=== PATIENT | female | born 1940 ===

== ENCOUNTER 2016-03-28 00:29 | Observation (INO) | payer MEDICARE, MEDICAID, OTHER ==
[~2016-03-28] VITALS: Ht 157.5 cm; Wt 61.3 kg
[2016-03-28] VITALS (10 sets, daily range): BP systolic 125–179; BP diastolic 49–74; PULSE 68–115; RESP 16–22; O2SAT 95–99
[~2016-03-28 00:29] MED LIST: CEFD300C3 PO; CLOP75TA3 PO; FURO-129 PO; LIP40 PO; LISI-567 PO; METF500T4 PO; METO50TA3 PO; METR500T PO; PANT20TA2 PO; POTA10TA PO
--- NOTE | 2016-03-28 00:42 | ED.REPORT ---
HPI-General Illness Date of Service Mar 28, 2016 ED Provider: Kirill Rodríguez MD Patient is a 75 year old female with history of recurrent pneumonia with prior hospital admission for sepsis, diabetes mellitus, coronary artery disease, hyperlipidemia and hypertension who presents to the ED after she was found with decreased level consciousness at 11:40pm by her granddaughter. Her granddaughter states that she was called by her grandfather t, who simply stated that her grandmother was not feeling well and that she needed to go to the hospital. When she arrived she found her grandmother unresponsive, eventually opening her eye to look at her. However, her grandmother was not able to speak and she rushed her to the hospital POV. Code danielle was called on the patient's arrival to the ED, however she was confirmed to have a pulse after she was brought back to a room. It was presumed that the patient had a syncopal episode. Her granddaughter reports that her grandmother felt unwell today and that she had fever. Her daughter reports that the patient was seen at a family event today and that she went home at 7pm because she felt unwell. The patient had reported having chest pain this morning "like she was coming down with a cold. The patient appeared short of breath and diaphoretic when she left the family gathering. She also reportedly complained of nausea to her . Patient is unable to provide any history, with the granddaughter and her daughter serving as the primary historians. Nursing Notes Stated Complaint: UNRESPONSIVE Chief Complaint: General Complaint Nursing Notes Reviewed: Yes Allergies: Coded Allergies: lactose (Verified Allergy, Mild, Nausea,Vomiting,Diarrhea, 03/28/16) Uncoded Allergies: Lactose (Allergy, Mild, Nausea,Vomiting,Diarrhea, 11/07/04) Scheduled Atorvastatin (Lipitor) 40 Mg Tablet 40 MG PO DAILY Cefdinir (Cefdinir) 300 Mg Capsule 300 MG PO BID Clopidogrel Bisulfate (Plavix) 75 Mg Tablet 75 MG PO DAILY Furosemide (Lasix) 20 Mg Tablet 20 MG PO DAILY Lisinopril (Lisinopril) 20 Mg Tablet 20 MG PO DAILY Metformin (Metformin) 500 Mg Tablet 500 MG PO BID Metoprolol Tartrate (Metoprolol Tartrate) 50 Mg Tablet 50 MG PO BID Metronidazole (Flagyl) 500 Mg Tablet 500 MG PO Q8H Pantoprazole DR (Pantoprazole DR) 20 Mg Tablet.dr 20 MG PO DAILY Potassium Chloride ER (K-Tab) 10 Meq Tablet 10 MEQ PO DAILY General Time Seen by MD: 00:32 Chief Complaint Other (decreased LOC) Hx Obtained From: Daughter, Other family... (Granddaughter) Unable to Obtain Hx: Patient condition Arrived By: Wheelchair Sudden in Onset?: No Onset Occurred: Onset unknown (earlier this evening) Symptom Duration: Since onset Recent Healthcare: No recent doctor visit, No recent hospitalization Similar Sx Previous: No Past Medical History Past Medical History current pneumonia, with prior hospital admission and sepsis Reports: Coronary artery disease, Diabetes mellitus, Hyperlipidemia, Hypertension Past Surgical History KRISH-BSO Reports: Cholecystectomy Smoking History Former Smoker Social History Alcohol Use: Denies alcohol use Drug Use: Denies drug use Ambulatory Status Independent Review of Systems Unable to Obtain ROS Patient condition Physical Exam Vital Signs Vital Signs Date Time Temp Pulse Resp B/P Pulse Ox O2 Delivery O2 Flow Rate FiO2 03/28/16 03:56 78 22 125/50 97 Room Air 03/28/16 01:08 102 16 157/65 99 Room Air 03/28/16 00:35 37.0 115 22 179/74 98 Room Air Initial VS: Reviewed Alertness: Positive: Responds to verb stimuli (but goes back to sleep) snoring respirations noted blood pressue was not initially measured radially, but carotid pulse is present at all times Head / Eyes: Atraumatic, Normocephalic, PERRL ENT: Airway patent, Mucous membranes moist Neck: Supple, No JVD Respiratory / Chest: Breath sounds NL, Breath sounds = bilat, No respiratory distress, No rales, No rhonchi, No wheezing Cardiovascular: Heart rate NL, Regular rhythm, Heart sounds NL Abdomen: Soft, Non-tender, No distention Upper Extremities Upper Extremity / MS: No deformity, Neurologic intact, Vascular intact Lower Extremity / Pelvis / MS: No deformity, Neurologic intact, Vascular intact Skin: Warm Color / Condition: Positive: Diaphoresis present Neurologic: No motor deficits (moving all four extremities), CN II - XII intact (face is symmetric) Mental Status: Positive: Responds to verbal stim (but goes back to sleep) Interpretation & Diagnostics Interpretation & Diagnostics: NEGATIVE FOR INFLUENZA TYPE A AND B Lab Results Interpretation Result Diagram: 03/28/16 0030 03/28/16 0030 Test 03/28/16 00:30 03/28/16 02:45 White Blood Count 15.5th/mm3 (3.8-10.1) Red Blood Count 4.33mil/mm3 (3.90-5.20) Hemoglobin 12.6g/dL (12.0-15.6) Hematocrit 37.2% (35.0-46.0) Mean Corpuscular Volume 85.9fL (81-100) Mean Corpuscular Hemoglobin 29.1pg (27.0-35.0) Mean Corpuscular Hemoglobin Concent 33.9% (32.0-37.0) Red Cell Distribution Width 13.8% (12.3-15.4) Platelet Count 236bil/L (150-400) Neutrophils (%) (Auto) 84.7% (40-74) Lymphocytes (%) (Auto) 9.6% (14-46) Monocytes (%) (Auto) 5.0% (4-12) Eosinophils (%) (Auto) 0.3% (0-5) Basophils (%) (Auto) 0.1% (0-3) D-Dimer < 0.5mg/L (<0.50) Sodium Level 137mEq/L (134-144) Potassium Level 4.6mEq/L (3.5-5.2) Chloride Level 101mEq/L (97-108) Carbon Dioxide Level 22mmol/L (18-29) Blood Urea Nitrogen 12mg/dL (8-27) Creatinine 0.49mg/dL (0.57-1.00) Estimat Glomerular Filtration Rate 177mL/min (>59) Glucose Level 177mg/dL (60-99) Calcium Level 8.8mg/dL (8.5-10.1) Magnesium Level 1.8mg/dL (1.6-2.6) Total Bilirubin 0.6mg/dL (0.0-1.2) Aspartate Amino Transf (AST/SGOT) 27U/L (0-50) Alanine Aminotransferase (ALT/SGPT) 21U/L (0-32) Alkaline Phosphatase 106U/L (25-165) Troponin T 0.010ug/L (0.0-0.011) Pro-B-Type Natriuretic Peptide 818.8pg/mL (0-738) Total Protein 7.7g/dL (6.4-8.4) Albumin 4.0g/dL (3.4-5.0) Triglycerides Level 71mg/dL (0-149) Cholesterol Level 105mg/dL (100-199) LDL Cholesterol, Calculated 42.800mg/dL (0-99) VLDL Cholesterol 14.200mg/dL HDL Cholesterol 48mg/dL (>39) Cholesterol/HDL Ratio 2.19 (0.0-4.4) Hold Obrien Top Tube Received (Received) Urine Color Yellow (YELLOW) Urine Appearance Hazy (CLEAR,HAZY) Urine pH 7.0 (5.0-8.0) Urine Specific [place] 1.010 (1.003-1.035) Urine Protein Negativemg/dL (NEG,TRACE) Urine Glucose (UA) Negativemg/dL (NEGATIVE) Urine Ketones Negativemg/dL (NEGATIVE) Urine Occult Blood Negative (NEGATIVE) Urine Nitrite Negative (NEGATIVE) Urine Bilirubin Negative (NEGATIVE) Urine Urobilinogen Normalmg/dL (NORMAL) Urine Leukocyte Esterase Trace (NEGATIVE) Urine RBC 0-2/hpf (0-2) Urine WBC 0-5/hpf (0-5) Urine Epithelial Cells Occasional/hpf (NONE-MOD) Urine Crystals None seen (NONE SEEN) Urine Bacteria Few/hpf (NONE-FEW) Urine Hyaline Casts None/lpf (NONE) Urine Granular Casts None seen (NONE SEEN) Urine Waxy Casts None seen (NONE SEEN) Urine Red Blood Cell Casts None seen (NONE SEEN) Urine White Blood Cell Casts None seen (NONE SEEN) Urine Mucus None seen (None Seen) Urine Trichomonas None seen (NONE SEEN) Urine Yeast None (NONE SEEN) Urine Culture Reflexed Indicated ECG Interpretation ECG Interpretation: Normal sinus rhythm Lateral ST and T wave depression Time: 00:45 Interpreted by: ED physician Normal ECG Interpretation: No acute ischemic changes ECG Interpretation: Sinus Rhythm, Rate 81 Probable left ventricular hypertrophy resolved lateral ST and T wave depression Time: 04:44 Interpreted by: ED physician X-Ray Chest Interpretation Chest Xray Interpretation: Impression: No acute cardiopulmonary process. View: Portable Interpretation / Wet Read by: Wet read ED physician CT Head Interpretation CONCLUSION: Mild atrophy and chronic small vessel ischemic disease with no acute intracranial abnoramlity. Prior left basal ganglia infarct noted. Radiologist: Jf Juan DO 03/28/2016 - 1:18:21 AM PST Study: Head CT no contrast Interpretation / Wet Read by: Interpret - Radiologist Re-Eval/Medical Decision Med Decision/Clinical Course 75-year-old with prior pneumonia, presents with a three day prodrome of nonspecific generalized malaise, and was found hypotensive and apparently syncopal in the front seat of her car, after being transported here by her family. She has no focus of infection on evaluation, no evidence of AR, although there is ischemia. In the lateral leads that is resolved on repeat. She has responded to IV hydration with an improved blood pressure and stable vitals at this point. She needs completion of rule out protocol and further evaluation. Blood cultures are pending. X-ray shows no apparent pneumonia, and urine is negative. D-dimer is negative. Transported in stable condition. Source of Hx: Old records Time of Eval: 03:13 Re-Evaluation/Progress Note: Rechecked the patient and her family. Family has continued to be stable during ED visit. Informed her family of the results of her labs, EKG, and chest x-ray. Patient will be admitted to the hospital for further care. All questions were addressed. Consultation : Referral / Consult Name: Jarvis Mullen MD Consulted With: Hospitalist Call Returned at: 03:10 Strap Sewer: Will see patient, Agrees with eval, Agrees with plan, Accepts admit Note: Spoke with Dr. Mullen, hospitalist, who agrees to accept admit. Counseled Regarding: Diagnosis, Lab results, Need for admission Discharge & Departure Primary Impression: Syncope Syncope type: unspecified Qualified Code: R55 - Syncope and collapse Additional Impression: Hypotension Hypotension type: unspecified hypotension type Qualified Code: I95.9 - Hypotension, unspecified Disposition: ADMITTED TO HOSPITAL Discharge Condition All VS Reviewed: Yes Condition: Stable Referrals: Jf Hernandez MD (PCP) Crit Care Except Billable Proc Time Spent: 30-74 minutes Services Performed: Patient management by me, Time spent at bedside, Reviewing test results, Reviewing imaging, Discussing patient care, Documentation in record, Time with fam/surrogate Critical Care Notes: Responded to the parking lot for a "code blue", and found a syncopal lady with hypotension that was responsive to supine posture. Transported in the emergency department and resuscitated as above. Scribe Attestation Portions of this note were transcribed by Marcelle Jim. I, Dr. Rodríguez personally performed the history, physical exam and medical decision-making; I reviewed and confirmed the accuracy of the information in the transcribed note. Signed by: Bertram Lorenzo, 03/28/2016 0454 copies to: Jf Hernandez MD, Christopher W MD Mar 28, 2016 00:42 Marcelle Jim Mar 28, 2016 00:58
[2016-03-28 00:43] LABS: BASOPHILS % (AUTO) 0.1 % (0-3); EOSINOPHILS % (AUTO) 0.3 % (0-5); Mean Corpuscular Hemoglobin 29.1 pg (27.0-35.0); Mean Corpuscular Volume 85.9 fL (81-100); NEUTROPHILS % (AUTO) 84.7 % (40-74); Platelet Count 236 bil/L (150-400)
[2016-03-28 01:27] LABS: Magnesium 1.8 mg/dL (1.6-2.6)
[2016-03-28 01:46] LABS: TROPONIN T 0.01 ug/L (0.0-0.011)
[2016-03-28 02:50] LABS: APPEARANCE,URINE HAZY (CLEAR,HAZY); COLOR,URINE YELLOW (YELLOW); OCCULT BLOOD,URINE NEGATIVE (NEGATIVE); UROBILINOGEN,URINE NORMAL (NORMAL)
[2016-03-28] MEDS ORDERED: Alum-Mag Hydrox-Simeth 30 mL Suspension PO PRN (03:45)
[2016-03-28] MEDS ORDERED: Polyethylene Glycol (PEG) 17 Gm Powder PO PRN (03:45)
[2016-03-28] MEDS ORDERED: Ondansetron 2 mg/mL 2 mL Inj IVPUSH PRN (03:45)
[2016-03-28] MEDS: 0.9% Sodium Chloride 1,000 ML IV SCH ×3 (03:57→19:48)
[2016-03-28] MEDS ORDERED: 0.9% Sodium Chloride 1,000 ML IV ONE (04:00)
[2016-03-28] MEDS ORDERED: Glucose 40% Oral Gel 15 Gm Tube PO PRN (04:35)
--- NOTE | 2016-03-28 04:45 | PCM.HPMED ---
Subjective Date of Service Mar 28, 2016 Primary Provider: Admitting Physician: Primary Care Physician: Jf Hernandez MD Attending Physician: Chief Complaint: Unresponsive History of Present Illness: Patient is a 75 year old female with a history of CAD, DM2, HTN, and HLP. She presented to [facility] on 03/28/16 via POV with her granddaughter. Patient is quite somnolent and all history taken from granddaughter. The young women reports that she was told the patient had felt poorly much of the day with some chest pain around 0800. Later in the day the patient reported feeling as though she was coming down with a cold with fever. No known cough but perhaps some shortness of breath, nausea and vomiting. The patient went to a family gathering around 1900 but left early because she continued not to feel well; apparently she appeared diaphoretic and short of breath at that time. Later in the night the patient's called the granddaughter over and when she arrived around 11:40PM she found her grandmother unresponsive and brought her to [facility]. Staff were brought out to the vehicle and patient was found to have a pulse but otherwise appeared unresponsive. Patient was rushed back to a room for evaluation. Of note, patient recently visited a large number of family members in [place]. The granddaughter was not at this gathering but does not believe any one to have been ill. No known sick contacts with the exception of the patient's sister who is recently and possibly had the flu. In the ED the patient is afebrile with a heart rate of 115, respiratory rate of 22, blood pressure 179/74, and O2 saturation of 98% on room air. Labs were remarkable for WBC 15.5 and blood glucose 177. Review of Systems: Patient with altered LOC. Complete ROS could not be obtained. Allergies Coded Allergies: lactose (Verified Allergy, Mild, Nausea,Vomiting,Diarrhea, 03/28/16) Uncoded Allergies: Lactose (Allergy, Mild, Nausea,Vomiting,Diarrhea, 11/07/04) Home Medications From hospital d/c 12/01/15 (no known changes reported since that time): Atorvastatin (Lipitor) 40 Mg Tablet 40 MG PO DAILY Clopidogrel Bisulfate (Plavix) 75 Mg Tablet 75 MG PO DAILY Furosemide (Lasix) 20 Mg Tablet 20 MG PO DAILY Lisinopril (Lisinopril) 20 Mg Tablet 20 MG PO DAILY Metformin (Metformin) 500 Mg Tablet 500 MG PO BID Metoprolol Tartrate (Metoprolol Tartrate) 50 Mg Tablet 50 MG PO BID Pantoprazole DR (Pantoprazole DR) 20 Mg Tablet.dr 20 MG PO DAILY Potassium Chloride ER (K-Tab) 10 Meq Tablet 10 MEQ PO DAILY PMH Coronary artery disease s/p stenting Diabetes mellitus type 2 Hyperlipidemia Hypertension Surgical History Cholecystectomy KRISH-BSO Family History She has one daughter with cancer No known family history of lung disease or heart disease per granddaughter Social History Hx Alcohol Use: Yes (Patient is a former drinker. She admits that she used to drink [place] ) Hx Substance Use: No Hx Tobacco Use: Yes (quit approximately 30 years ago, patient used to smoke 3 packs per day ) Smoking Status: Former Smoker Living Arrangement: with Family Exam Vital Signs Vital Sign - Last Date Time Temp Pulse Resp B/P Pulse Ox O2 Delivery O2 Flow Rate FiO2 03/28/16 01:08 102 16 157/65 99 Room Air 03/28/16 00:35 37.0 Exam Somnolent, does not arouse to verbal or tactile stimulus, no acute distress, follows no directions Head atraumatic, normocephalic Mucus membranes moist, no oral thrush observed - as best can be told through partially open mouth No cervical lymphadenopathy, neck supple, nontender No JVD noted Cardiac tones regular rate and rhythm with no murmur appreciated Lungs clear to auscultation bilaterally with adequate respiratory effort No abdominal tenderness, non-distended, normoactive bowel tones, soft John absent Radial pulses normal and equivalent bilaterally, dorsalis pedis pulses difficult to appreciate bilaterally No cyanosis, clubbing or edema No ulcerations/open wounds Neuro exam could not be performed as patient not awake nor cooperative Lab and Diagnostics Result Diagram: 03/28/16 0030 03/28/16 0030 X-Rays, CTs and MRIs CT head w/o contrast: Conclusion: Mild atrophy and chronic small vessel ischemic disease with no acute intracranial abnormality. Prior left basal ganglia infarct noted. Jf Juan, 03/28/16 01:18 AM Chest x-ray: No evidence of acute cardiopulmonary disease in my opinion. Await formal radiology reading. 12-lead ECG Rate 120 QTc [address] depressions in lead II, V4-V6 of uncertain significance; represents a change from prior EKG's. Assessment & Plan Patient is a 75 year old female with a history of CAD, DM2, HTN, and HLP. She presented to [facility] on 03/28/16 via POV with her granddaughter. Patient is quite somnolent and all history taken from granddaughter. Uncertain history of illness taken from family with reports of chest pain as well. Patient admitted for additional workup of her altered LOC. 1. Possible NSTEMI, acute, present on admission. - Changes in EKG when compared to prior. ST depressions more notable in V4-V6 but also seen in Lead II. Uncertain of the significance. - History of CAD with stent placement. - Will trend troponin. - Repeat EKG in AM. - When patient awakens, could consider Lexiscan or other stress test to better ascertain status of coronary arteries. - Patient to be NPO. - IV NS at 100 ml/hr. - Nitro SL available PRN return of chest pain. 2. Altered LOC, acute, present on admission. - Possibly multifactorial. Patient may have infection based on WBC count, possible NSTEMI due to EKG changes. - Will order more testing as above in #1 and below in #3. - IV fluids as above in #1. 3. Leukocytosis, acute, present on admission. - Patient with likely exposure to influenza. No infiltrate or consolidation to presume pneumonia although patient has a history of this. - Low threshold to repeat chest x-ray. - Rapid screen negative. Will order viral PCR to confirm. - No antimicrobial agents at this time as history is still uncertain. - Continue to monitor CBC. - UA ordered and pending with reflex to culture if indicated. 4. Type 2 diabetes mellitus, control unknown. - Last A1c unknown. Will order A1c. - Will currently hold Metformin 500 mg BID. - Low dose correction scale to be available as needed. 5. CAD s/p stenting. - Continue Plavix 75 mg daily. - Continue Metoprolol 50 mg BID. 6. Hypertension, chronic, presume stable. - Reports of patient being hypotensive but nothing definitively documented. - Hold Lasix 20 mg daily, potassium 10 mEq daily, lisinopril 20 mg daily at this time until we determine patient is no longer at high risk of being hypotensive. 7. Hyperlipidemia, chronic. - Uncertain of baseline levels. Will check lipid panel, especially in light of possible NSTEMI. - Continue atorvastatin 40 mg HS. 8. Medication reconciliation: - Family brought medications but they were not in bottles but out into daily doses. - Need to confirm meds and doses with preferred pharmacy or medicine bottles. 9. DVT prophylaxis: - Will use SCD's alone at this time. - Until it is determined patient will need no cardiac catheterization will defer starting Lovenox 40 mg SQ daily. - Bowel regimen PRN. - Antiemetic PRN. - Antacid PRN. - Tylenol PRN mild pain, fever. Patient admitted under inpatient status with expected length of stay greater than 2 midnights for severity of present symptoms, complexities of treatment plan and risk for adverse events. PCP Dr. Hernandez VTE Prophylaxis: SCDs Resuscitation Status: CPR: Attempt Resuscitation Attending Statement The patient was seen and examined together with Dr. Mendez on 03/27 and I agree with the history, exam and plan as outlined in the note above. copies to: Jf Hernandez MD, Jennifer E DO Mar 28, 2016 04:12 Jarvis Mullen MD Apr 02, 2016 19:03
--- NOTE | 2016-03-28 05:26 | NUR ---
Admit Note Pt arrived to room 3010 at about 0500. No responsive, keeps eyes closed. Granddaughter and Grandson at bedside and report this is not her norm and that she was doing much much better around 7pm but then LOC decreased to now only sleeping and not responding. Med req not done because pt does not bring records, family not aware of pharmacy.
[2016-03-28] MEDS: Insulin LISPRO 300 Unit/3 mL Inj SUBQ SCH ×4 (07:41→22:00)
--- NOTE | 2016-03-28 08:46 | DRSVH ---
PROCEDURE: CT BRAIN WITHOUT CONTRAST ([id number]) INDICATIONS: unresponsive TECHNIQUE: Noncontrast 4.5 mm thick angled axial sections acquired from the foramen magnum to the vertex, with c oronal reformats. COMPARISON: None. FINDINGS: Image quality: Excellent. CSF spaces: Basal cisterns are patent. No extra-axial fluid collections. The ventricles are symmet leno in size and shape. Brain: No intracranial bleeds or masses. Small chronic left caudate head/cohen radiata infarct is p resent. Small chronic left parietal subcortical white matter infarct is present. There is cerebral vo lume loss for age, with resultant ventricular and sulcal prominence. There are periventricular and d eep white matter chronic small vessel ischemic changes. There is intracranial internal carotid arter y atherosclerosis. Skull and face: Calvarium and visualized facial bones appear intact, without suspicious lesions. Sinuses: Visualized sinuses and mastoids are clear. IMPRESSION: 1. No acute intracranial abnormality. 2. Small chronic left-sided infarcts. 3. Concordant with preliminary interpretation. Dictated by: Any Can M.D. on 03/28/2016 at 8:43 Approved by: Any Can M.D. on 03/28/2016 at 8:45
--- NOTE | 2016-03-28 09:55 | DRSVH ---
PROCEDURE: X-RAY CHEST ONE VIEW, PORTABLE ([id number]) INDICATIONS: unresponsive TECHNIQUE: One view of the chest was acquired. COMPARISON: [facility], CR, XR CHEST 2VW, 12/01/2015, 8:19. [facility], CR, XR CHEST 1VW (PORTABLE), 11/26/2015, 13:19. FINDINGS: Surgical changes and devices: None. Lungs and pleura: No pleural effusions or pneumothorax. Lungs are clear. Mediastinum: Mediastinal contours appear normal. Heart size is normal. Bones and chest wall: No suspicious bony lesions. Overlying soft tissues appear unremarkable. IMPRESSION: No acute cardiopulmonary disease. Dictated by: Sb Sharp RRA Interpreted: Ellie Solis MD on 03/28/2016 at 9:54 Transcribed by: KENNEDI on 03/28/2016 at 9:54 Approved by: Ellie Solis MD, PhD on 03/28/2016 at 15:50
--- NOTE | 2016-03-28 16:39 | NUR ---
Social Work: Initial Assessment Data & Assessment: EMR Reviewed See Initial Assessment. patch worker met with patient and patient's grand daughterDebbie at bedside to complete Initial Assessment, discuss discharge planning and SW role reviewed. patient was asleep during initial Assessment and patient's granddaughter answered the questions. Patient PCP is Dr. Jf Hernandez. Patient's insurance is Medicare with [employer] as secondary. Patient does not have VA benefits or LTC benefits. Patient granddaughter reported that the patient was in a single level home with her spouse. The patient's home has two steps to enter. Patient granddaughter states that the patient does not have any SNF or HH history. Patient grand daughter also reported that the patient does not have any DME and drove prior to admission. It is anticipated that the patient will discharge home with no needs. SW will continue to follow. Plan: Patient will discharge home no needs via POV. Patient's daughter Niru [phone] will pick her up when discharged. SW will continue to follow. Darshan Escobar LMSW, AALIYAH Addendum: 03/28/16 at 1651 by DARSHAN BUNCH Amended: Links added.
--- NOTE | 2016-03-28 16:55 | NUR ---
Case Management: BARRY explained to patient at 1538, pt refused to sign stating she was unable to read or write. She requested I come back later when her was present. Will check back with patient. Shaheen Levine RN Addendum: 03/28/16 at 1811 by SHAHEEN LEVINE Spoke with patient's Lenny ([phone]) and explained BARRY, all questions answered. He states he might be able to obtain a ride to [facility] to sign form later today or tomorrow. Shaheen Levine RN
[2016-03-29 01:09] VITALS: BP 146/66; PULSE 58; RESP 18; O2SAT 98
[2016-03-29 05:00] VITALS: PULSE 85
[2016-03-29 05:21] VITALS: BP 150/60; PULSE 62; RESP 18; O2SAT 99
[2016-03-29] MEDS: 0.9% Sodium Chloride 1,000 ML IV SCH (05:53)
[2016-03-29 06:20] LABS: Mean Corpuscular Hemoglobin 30.1 pg (27.0-35.0); Mean Corpuscular Volume 89.2 fL (81-100)
--- NOTE | 2016-03-29 06:29 | NUR ---
Noneventful Night Pt denies chest pain/pressure/any other pain/N/V/SOB/fever/chills. But does have nonproductive cough intermittently. Coarse lung sounds and a few wheezes at left lung. Tele: SR 70s-90s PACs PVCs per quality assurance monitor final. Alert and orientedx2-3, ambulated to BR void sufficient light yellow urine multiple times, gait steady, denies dizziness,vertigo. Sleeping most of night. VSS. NS 100ML/hr running. Pt kept NPO after MN, no caffeine for stress test today 2/3.
[2016-03-29] MEDS: Insulin LISPRO 300 Unit/3 mL Inj SUBQ SCH ×3 (07:50→17:30)
[2016-03-29 08:00] VITALS: PULSE 98
[2016-03-29 09:02] VITALS: BP 170/77; PULSE 78; RESP 19; O2SAT 99
--- NOTE | 2016-03-29 11:15 | NUR ---
NPO This RN was with another pt, called by minoo asking if pt was allowed to eat if test was complete. This RN stated, the test had not been completed so therefore pt was still to be NPO. This RN went to room where it was discovered family had brought food to bedside and pt had taken a "bite". Contacted [facility] to inquire if test needed to be rescheduled. was advised pt could still complete test however may have some emesis at time of testing. Pt was advised, food was placed out of reach. Pt is aware will not be able to eat until completion of stress test. Call light with in reach, will continue to monitor.
--- NOTE | 2016-03-29 16:17 | DRSVH ---
PROCEDURE: ONE DAY PHARMACOLOGICAL STRESS TEST. Rest and pharmacological stress myocardial perfusio n SPECT with gated imaging and ejection fraction RADIOPHARMACEUTICAL: 8.3 mCi Tc-99m tetrofosmin IV at rest and 23.4 mCi Tc-99m tetrofosmin IV at pea k effect of pharmacological stress. A [id number] was performed. INDICATIONS: Chest pain and syncope TECHNIQUE: Radiopharmaceutical was injected at peak stress test and also at rest. SPECT images were obtained. SPECT myocardial perfusion images were displayed in short axis, horizontal long axis, and vertical long axis views. Gated images were reviewed using [employer] software. COMPARISON: None. CARDIAC STRESS: A pharmacologic stress test was performed under the supervision of attending staff u sing an infusion of Lexiscan. Hemodynamic Data: There is normal blood pressure and heart rate response to pharmacologic stress. Symptoms: The patient denied anginal chest pain. Aminophylline: Not given. EKG: No diagnostic changes of ischemia, no ectopy. FINDINGS: Raw Data: There is good myocardial uptake of radiotracer. No significant motion artifacts. Left Ventricular Function: Gated images demonstrate normal left ventricular wall thickening. No seg mental wall motion abnormalities. No transient ischemic dilation visually. Left ventricular resting end diastolic volume is 58 mL. Left ventricle stress ejection fraction is 80%; normal range is abov e 45%. Myocardial Perfusion: There is normal distribution of activity in the right and left ventricular corbin cardium. No fixed or reversible perfusion defects. IMPRESSION: 1. No significant ST-T changes. 2. No chest pain. 3. No significant arrhythmia. 4. No ischemia. 5. Normal wall motion and ejection fraction. Dictated by: Lb Vincent M.D. on 03/29/2016 at 14:48 Transcribed by: TAMMIE on 03/29/2016 at 19:17 Approved by: Lb Vincent M.D. on 04/26/2016 at 13:43
--- NOTE | 2016-03-29 16:49 | PCM.DIMED ---
Discharge Instructions Date of Service Mar 29, 2016 Dates of Hospitalization Mar 28, 2016 at 04:19 Discharge Diagnosis Discharge Diagnosis Chest pain Altered mental status with loss of consciousness Leukocytosis Type II diabetes controlled Hypertension Diet Heart Healthy Activity Other (gradually return to your everyday activities) Call your provider Fever or Chills, Shortness of breath, Chest pain, Vomitting, Excessive diarrhea , Weakness (unilateral) Patient Instructions Follow-up Provider: Jf Hernandez MD Follow-up with PCP in: 1 week (if an appointment has not already been made please call to make a follow-up appointment) Oxana Stephens DO Mar 29, 2016 16:49
--- NOTE | 2016-03-29 16:55 | PCM.DC.MED ---
Discharge Summary Date of Service Mar 29, 2016 Dates of Hospitalization Date of Hospital Admission Mar 28, 2016 at 04:19 Date of Discharge: Mar 29, 2016 Providers: Admitting Physician: Jarvis Mullen MD Primary Care Physician: Jf Hernandez MD Attending Physician: Jarvis Mullen MD Diagnosis at Time of Discharge Diagnosis at Time of Discharge Chest pain Altered mental status with loss of consciousness Leukocytosis Type II diabetes controlled Hypertension Procedures XRay, CTs & MRIs CT head w/o contrast: Conclusion: Mild atrophy and chronic small vessel ischemic disease with no acute intracranial abnormality. Prior left basal ganglia infarct noted. Jf Juan DO 03/28/16 01:18 AM Chest x-ray: No evidence of acute cardiopulmonary disease in my opinion. Await formal radiology reading. ECG 12 Lead Rate 120 QTc [address] depressions in lead II, V4-V6 of uncertain significance; represents a change from prior EKG's. Invasive Procedures PROCEDURE: ONE DAY PHARMACOLOGICAL STRESS TEST. Rest and pharmacological stress myocardial perfusion SPECT with gated imaging and ejection fraction RADIOPHARMACEUTICAL: 8.3 mCi Tc-99m tetrofosmin IV at rest and 23.4 mCi Tc-99m tetrofosmin IV at peak effect of pharmacological stress. A [id number] was performed. INDICATIONS: Chest pain and syncope TECHNIQUE: Radiopharmaceutical was injected at peak stress test and also at rest. SPECT images were obtained. SPECT myocardial perfusion images were displayed in short axis, horizontal long axis, and vertical long axis views. Gated images were reviewed using [employer] software. COMPARISON: None. CARDIAC STRESS: A pharmacologic stress test was performed under the supervision of attending staff using an infusion of Lexiscan. Hemodynamic Data: There is normal blood pressure and heart rate response to pharmacologic stress. Symptoms: The patient denied anginal chest pain. Aminophylline: Not given. EKG: No diagnostic changes of ischemia, no ectopy. FINDINGS: Raw Data: There is good myocardial uptake of radiotracer. No significant motion artifacts. Left Ventricular Function: Gated images demonstrate normal left ventricular wall thickening. No segmental wall motion abnormalities. No transient ischemic dilation visually. Left ventricular resting end diastolic volume is 58 mL. Left ventricle stress ejection fraction is 80%; normal range is above 45 %. Myocardial Perfusion: There is normal distribution of activity in the right and left ventricular myocardium. No fixed or reversible perfusion defects. IMPRESSION: 1. No significant ST-T changes. 2. No chest pain. 3. No significant arrhythmia. 4. No ischemia. 5. Normal wall motion and ejection fraction. PQRS ATTESTATIONS: Measure 322 - Is this imaging test primarily performed on a low-risk surgery patient for preoperative evaluation within 30 days preceding their low-risk non- cardiac surgery? Low-risk surgery is defined as cardiac or myocardial infarction less than 1%, including (but not limited to) endoscopic procedures, superficial procedures, cataract surgery, and excisional breast surgery: Answer : No Measure 323 - Is this imaging test performed primarily for the monitoring of an asymptomatic patient who had percutaneous coronary intervention on the visit date or within 2 years of the visit date? Answer: No Measure 324 - Is this imaging test performed primarily for the initial detection and risk assessment on an asymptomatic, low coronary heart disease patient? Low CHD risk definition = clinicians should consider the maximum number of available patient factors used to estimate risk based on Sebastian ( ATP III criteria), typically age, gender, diabetes, smoking status, and use of blood pressure medication, and integrate age appropriate estimates for missing elements, such as LDL or standard blood pressure. Answer: No Dictated by: Lb Vincent M.D. on 03/29/2016 at 14:48 Transcribed by: TAMMIE on 03/29/2016 at 19:17 Brief History Patient is a 75 year old female with a history of CAD, DM2, HTN, and HLP. She presented to [facility] on 03/28/16 via POV with her granddaughter. Patient is quite somnolent and all history taken from granddaughter. The young women reports that she was told the patient had felt poorly much of the day with some chest pain around 0800. Later in the day the patient reported feeling as though she was coming down with a cold with fever. No known cough but perhaps some shortness of breath, nausea and vomiting. The patient went to a family gathering around 1900 but left early because she continued not to feel well; apparently she appeared diaphoretic and short of breath at that time. Later in the night the patient's called the granddaughter over and when she arrived around 11:40PM she found her grandmother unresponsive and brought her to [facility]. Staff were brought out to the vehicle and patient was found to have a pulse but otherwise appeared unresponsive. Patient was rushed back to a room for evaluation. Of note, patient recently visited a large number of family members in [place]. The granddaughter was not at this gathering but does not believe any one to have been ill. No known sick contacts with the exception of the patient's sister who is recently and possibly had the flu. In the ED the patient is afebrile with a heart rate of 115, respiratory rate of 22, blood pressure 179/74, and O2 saturation of 98% on room air. Labs were remarkable for WBC 15.5 and blood glucose 177. Hospital Course Patient is a 75 year old female with a history of CAD, DM2, HTN, and HLP. She presented to [facility] on 03/28/16 via POV with her granddaughter. Patient is quite somnolent and all history taken from granddaughter. Uncertain history of illness taken from family with reports of chest pain as well. Patient admitted for additional workup of her altered LOC. Patient's white blood cell count seemed to improve with supportive therapy. Patient has had exposure to influenza and this may have been some effects of that however the patient's influenza screen was negative. The patient was also worked up for a possible NSTEMI however the patient's troponins were negative 3. And the patient also had a cardiac stress test which was also negative. The patient pressures and blood glucose have also been stable throughout this stay with occasional elevated systolic pressures in the 170s. According to the granddaughter the patient is back to her baseline mental status. The patient may have just been dehydrated and needed fluid resuscitation. The patient seems to be responding better to questions and is back to her baseline mentation. Patient will be discharged home and has been told to follow-up with her primary care physician within one week. Patient will be discharged home with family in stable condition. Exam Vital Signs (Last) Date Time Temp Pulse Resp B/P Pulse Ox O2 Delivery O2 Flow Rate FiO2 03/29/16 09:02 36.5 78 19 170/77 99 Room Air Exam Physical Exam: GEN: Patient was awake, alert, responding appropriately to questions HEENT: PERRLA, EOMI, Neck soft supple, trachea midline, nomocephalic/atraumatic CV: +S1/S2, RRR, no murmurs auscultated Respiratory: Positive mild wheezes, good air exchange, chest expansion equal bilaterally GI: +bowel sounds x4, soft, compressible, non TTP EXT: no c/c/e Neuro: CN II-XII grossly intact Psych: mood and affect were appropriate Test 03/28/16 00:30 03/28/16 02:45 03/28/16 13:00 03/29/16 05:30 Neutrophils (%) (Auto) 84.7% (40-74) Lymphocytes (%) (Auto) 9.6% (14-46) Monocytes (%) (Auto) 5.0% (4-12) Eosinophils (%) (Auto) 0.3% (0-5) Basophils (%) (Auto) 0.1% (0-3) D-Dimer < 0.5mg/L (<0.50) Hemoglobin A1c 7.3% (4.8-5.6) Magnesium Level 1.8mg/dL (1.6-2.6) Pro-B-Type Natriuretic Peptide 818.8pg/mL (0-738) Triglycerides Level 71mg/dL (0-149) Cholesterol Level 105mg/dL (100-199) LDL Cholesterol, Calculated 42.800mg/dL (0-99) VLDL Cholesterol 14.200mg/dL HDL Cholesterol 48mg/dL (>39) Cholesterol/HDL Ratio 2.19 (0.0-4.4) Hold Obrien Top Tube Received (Received) Urine Color Yellow (YELLOW) Urine Appearance Hazy (CLEAR,HAZY) Urine pH 7.0 (5.0-8.0) Urine Specific [place] 1.010 (1.003-1.035) Urine Protein Negativemg/dL (NEG,TRACE) Urine Glucose (UA) Negativemg/dL (NEGATIVE) Urine Ketones Negativemg/dL (NEGATIVE) Urine Occult Blood Negative (NEGATIVE) Urine Nitrite Negative (NEGATIVE) Urine Bilirubin Negative (NEGATIVE) Urine Urobilinogen Normalmg/dL (NORMAL) Urine Leukocyte Esterase Trace (NEGATIVE) Urine RBC 0-2/hpf (0-2) Urine WBC 0-5/hpf (0-5) Urine Epithelial Cells Occasional/hpf (NONE-MOD) Urine Crystals None seen (NONE SEEN) Urine Bacteria Few/hpf (NONE-FEW) Urine Hyaline Casts None/lpf (NONE) Urine Granular Casts None seen (NONE SEEN) Urine Waxy Casts None seen (NONE SEEN) Urine Red Blood Cell Casts None seen (NONE SEEN) Urine White Blood Cell Casts None seen (NONE SEEN) Urine Mucus None seen (None Seen) Urine Trichomonas None seen (NONE SEEN) Urine Yeast None (NONE SEEN) Urine Culture Reflexed Indicated Troponin T < 0.010ug/L (0.0-0.011) White Blood Count 6.2th/mm3 (3.8-10.1) Red Blood Count 3.89mil/mm3 (3.90-5.20) Hemoglobin 11.7g/dL (12.0-15.6) Hematocrit 34.7% (35.0-46.0) Mean Corpuscular Volume 89.2fL (81-100) Mean Corpuscular Hemoglobin 30.1pg (27.0-35.0) Mean Corpuscular Hemoglobin Concent 33.7% (32.0-37.0) Red Cell Distribution Width 13.8% (12.3-15.4) Platelet Count 210bil/L (150-400) Sodium Level 144mEq/L (134-144) Potassium Level 4.2mEq/L (3.5-5.2) Chloride Level 108mEq/L (97-108) Carbon Dioxide Level 25mmol/L (18-29) Blood Urea Nitrogen 6mg/dL (8-27) Creatinine 0.43mg/dL (0.57-1.00) Estimat Glomerular Filtration Rate 206mL/min (>59) Glucose Level 120mg/dL (60-99) Calcium Level 8.2mg/dL (8.5-10.1) Total Bilirubin 0.6mg/dL (0.0-1.2) Aspartate Amino Transf (AST/SGOT) 14U/L (0-50) Alanine Aminotransferase (ALT/SGPT) 14U/L (0-32) Alkaline Phosphatase 95U/L (25-165) Total Protein 6.4g/dL (6.4-8.4) Albumin 3.5g/dL (3.4-5.0) Discharge Medications Discharge Medications Atorvastatin (Lipitor) 40 Mg Tablet 40 MG PO DAILY (Reported) Clopidogrel Bisulfate (Plavix) 75 Mg Tablet 75 MG PO DAILY (Reported) Lisinopril (Lisinopril) 20 Mg Tablet 20 MG PO DAILY (Reported) Metformin (Metformin) 500 Mg Tablet 500 MG PO DAILY (Reported) Metoprolol Tartrate (Metoprolol Tartrate) 50 Mg Tablet 50 MG PO BID (Reported) Pantoprazole DR (Pantoprazole DR) 20 Mg Tablet.dr 20 MG PO DAILY (Reported) Followup Plan Discharge Diet: Heart Healthy Discharge Activity: Other (gradually return to your everyday activities) Follow-up Provider: Jf Hernandez MD Follow-up with PCP in: 1 week (if an appointment has not already been made please call to make a follow-up appointment) Time spent Greater than 35 minutes Oxana Stephens DO Mar 29, 2016 16:54
--- NOTE | 2016-03-29 18:16 | NUR ---
Discharge Pt discharged at this time, no complains of increased pain, SOB, or increased weakness. All belongings gathered and returned to pt. VSS, IV x 2 D/Cd intact, tele monitor removed. Discharge packet printed and reviewed with pt. Pt awaiting ride home in room. Addendum: 03/29/16 at 1855 by MERLYN BARON RN pt taken from [facility] by katia TORRES in wheelchair to be taken home in private vehicle driven by daughter
== END 2016-03-29 18:35 | disposition home or self-care (01) ==
LOC: SED 00:29 → MPC 04:19
PROVIDERS: ADMIT Hospitalist; ATTEND Hospitalist
DX: R07.9 Chest pain, unspecified (principal); R41.82 Altered mental status, unspecified; R55 Syncope and collapse; D72.829 Elevated white blood cell count, unspecified; E11.9 Type 2 diabetes mellitus without complications; I10 Essential (primary) hypertension; I25.10 Atherosclerotic heart disease of native coronary artery without angina pectoris; E78.5 Hyperlipidemia, unspecified; Z87.01 Personal history of pneumonia (recurrent); Z79.84 Long term (current) use of oral hypoglycemic drugs; Z87.891 Personal history of nicotine dependence; Z95.5 Presence of coronary angioplasty implant and graft
CPT/HCPCS: 36415; 70450; 71010; 78452; 80053; 80061; 81000; 82948; 83036; 83735; 83880; 84484; 85025; 85027; 85379; 87086; 87088; 87633; 87804; 93005; 93017; 94799; 99291; A9502; G0378; J2785; J7030

== ENCOUNTER 2016-06-17 14:40 | Inpatient (IN) | payer MEDICARE, MEDICAID, OTHER ==
[~2016-06-17] VITALS: Ht 154.9 cm; Wt 53.9 kg
[~2016-06-17 14:40] MED LIST changes: -CEFD300C3 PO; -FURO-129 PO; -METR500T PO; -POTA10TA PO
[2016-06-17 14:47] VITALS: BP 140/65; PULSE 73; RESP 9; O2SAT 98
[2016-06-17 16:03] LABS: BASOPHILS % (AUTO) 0.2 % (0-3); EOSINOPHILS % (AUTO) 0.6 % (0-5); MONOCYTES % (AUTO) 6.1 % (4-12); Mean Corpuscular Hemoglobin 28.3 pg (27.0-35.0); NEUTROPHILS % (AUTO) 78.5 % (40-74); Platelet Count 330 bil/L (150-400)
--- NOTE | 2016-06-17 16:29 | ED.REPORT ---
HPI-Dyspnea / Wheezing Date of Service Jun 17, 2016 ED Provider: Karlo BinghamO. A 76 year old female with a medical history including CVA, diabetes, hypertension, and CAD s/p cardiac stenting presents to the ED accompanied by a family member with shortness of breath onset one week ago. The patient also reports intermittent left-sided pleuritic chest pain that is sharp in nature, onset yesterday while walking and lasting approximately three minutes at a time. Associated symptoms include three weeks of subjective fever, weakness, and productive cough with green sputum. The patient denies other symptoms. History is somewhat limited due to patient's mild confusion. Nursing Notes Stated Complaint: SHORT OF BREATH, SHARP CHEST PAINS Chief Complaint: Respiratory Complaints Nursing Notes Reviewed: Yes Allergies: Coded Allergies: lactose (Verified Allergy, Mild, Nausea,Vomiting,Diarrhea, 03/28/16) Scheduled Atorvastatin (Lipitor) 40 Mg Tablet 40 MG PO QPM Clopidogrel Bisulfate (Plavix) 75 Mg Tablet 75 MG PO QAM Lisinopril (Lisinopril) 20 Mg Tablet 20 MG PO QPM Metformin ER (Metformin ER) 750 Mg Tablet 750 MG PO QPM Metoprolol Tartrate (Metoprolol Tartrate) 50 Mg Tablet 50 MG PO BID Pantoprazole DR (Pantoprazole DR) 20 Mg Tablet.dr 20 MG PO QPM Scheduled PRN Acetaminophen (Acetaminophen) 500 Mg Tablet 500 MG PO Q6H PRN PRN For Headache Acetaminophen/Codeine 300-15mg (Acetaminophen/Codeine 300-15mg) 1 Each Tablet 1- 2 TABLET PO Q4H PRN PRN Pain Albuterol HFA (Proair HFA) 8.5 Gm Hfa.aer.ad 2 PUFFS INHALATION Q4H PRN PRN For Shortness of Breath General Time Seen by MD: 16:28 Chief Complaint Shortness of breath Hx Obtained From: Patient Arrived By: Walk-in Sudden in Onset?: Yes Onset Occurred: More than a week ago... (Three weeks, worsening one week ago) Symptom Duration: Since onset Location: : Chest left Quality: Painful, Sharp Severity: Current: No pain currently Severity: Maximum: Moderate Associated with: Reports: Cough Pertinent Negative: Relieved by nothing Context Related History: Reports: Coronary artery disease Recent Healthcare: No recent doctor visit Past Medical History Past Medical History CVA Reports: Coronary artery disease, Diabetes mellitus, Hyperlipidemia, Hypertension Past Surgical History KRISH-BSO Cardiac stenting Reports: Cholecystectomy Family History She has one daughter with cancer No known family history of lung disease or heart disease per granddaughter Smoking History Former Smoker Social History Alcohol Use: Denies alcohol use Drug Use: Denies drug use Other Social History: Good social support Ambulatory Status Independent Review of Systems Constitutional: Reports: Fever (Subjective), Weakness - generalized Respiratory: Reports: Pleuritic pain, Prod cough, green, Shortness of breath Cardiovascular: Reports: Chest pain (Intermittent, left-sided) Complete sys rev & neg: except as marked. GI: Denies: Diarrhea, Vomiting Physical Exam Initial Vital Signs Vital Signs (First) Date Time Temp Pulse Resp B/P Pulse Ox O2 Delivery O2 Flow Rate FiO2 06/17/16 14:47 36.6 73 9 140/65 98 06/17/16 16:30 Room Air Initial VS: Reviewed Head / Eyes: Atraumatic, Normocephalic ENT: Conjunctiva normal, No scleral icterus Extremities: No swelling, No tenderness Skin: Warm, Dry Psychiatric: Mood/affect normal, Behavior normal General/Constitutional: Awake, Alert Appearance / Presentation: Positive: Frail Thin Neck: Supple, Full range of motion Respiratory / Chest: No respiratory distress Rales / Rhonchi: Positive: Rales bilateral bases (R>L) Cardiovascular: Heart rate NL, Regular rhythm, Heart sounds NL Neurologic: Speech NL Mental Status: Positive: Confused (Mild) Interpretation & Diagnostics Lab Results Interpretation Result Diagram: 06/17/16 1545 06/17/16 1545 Test 06/17/16 15:45 06/17/16 17:16 White Blood Count 9.6th/mm3 (3.8-10.1) Red Blood Count 4.20mil/mm3 (3.90-5.20) Hemoglobin 11.9g/dL (12.0-15.6) Hematocrit 35.7% (35.0-46.0) Mean Corpuscular Volume 85.0fL (81-100) Mean Corpuscular Hemoglobin 28.3pg (27.0-35.0) Mean Corpuscular Hemoglobin Concent 33.3% (32.0-37.0) Red Cell Distribution Width 13.4% (12.3-15.4) Platelet Count 330bil/L (150-400) Neutrophils (%) (Auto) 78.5% (40-74) Lymphocytes (%) (Auto) 14.5% (14-46) Monocytes (%) (Auto) 6.1% (4-12) Eosinophils (%) (Auto) 0.6% (0-5) Basophils (%) (Auto) 0.2% (0-3) Sodium Level 132mEq/L (134-144) Potassium Level 4.3mEq/L (3.5-5.2) Chloride Level 97mEq/L (97-108) Carbon Dioxide Level 20mmol/L (18-29) Blood Urea Nitrogen 9mg/dL (8-27) Creatinine 0.49mg/dL (0.57-1.00) Estimat Glomerular Filtration Rate 176mL/min (>59) Glucose Level 135mg/dL (60-99) Calcium Level 9.3mg/dL (8.5-10.1) Total Bilirubin 0.4mg/dL (0.0-1.2) Aspartate Amino Transf (AST/SGOT) 19U/L (0-50) Alanine Aminotransferase (ALT/SGPT) 11U/L (0-32) Alkaline Phosphatase 102U/L (25-165) Troponin T < 0.010ug/L (0.0-0.011) Pro-B-Type Natriuretic Peptide 1016pg/mL (0-738) Total Protein 7.8g/dL (6.4-8.4) Albumin 3.7g/dL (3.4-5.0) Lactic Acid Level 1.0mmol/L (0.4-2.0) ECG Interpretation ECG Interpretation: Sinus rhythm rate 68 Atrial premature complex Time: 16:32 Interpreted by: ED physician X-Ray Chest Interpretation Chest Xray Interpretation: IMPRESSION: Right midlung radiopacities suspicious for aspiration/infection. Short interval followup is recommended with resolution of the patient's symptoms to ensure there is no underlying pulmonary pathology. Dictated by: Bonita Lyons M.D. on 06/17/2016 at 16:57 View: AP & lat Interpretation / Wet Read by: Interpret - Radiologist Re-Eval/Medical Decision Source of Hx: Old records Re-Evaluation/Progress : Time of Eval: 17:31 Patient Status: Condition improved Re-Evaluation/Progress Note: Discussed with patient and family lab and x-ray results, diagnosis, and plan for admit. Patient agrees with plan for care and all questions were addressed. Consultation : Referral / Consult Name: Mihir Clarke Consulted With: Hospitalist Call Returned at: 18:01 Physical Education Professor: Agrees with eval, Agrees with plan, Accepts admit Counseled Regarding: Diagnosis, Lab results, Need for admission Discharge & Departure Impression: Primary Impression: Pneumonia Pneumonia type: due to unspecified organism Laterality: right Lung location : middle lobe of lung Qualified Code: J18.1 - Lobar pneumonia, unspecified organism Disposition: ADMITTED TO HOSPITAL Discharge Condition All VS Reviewed: Yes Condition: Improved Referrals: Jf Hernandez MD (PCP) Garcíaibjohan Attestation Portions of this note were transcribed by Johnna Quinones. I, Dr. Cotton, personally performed the history, physical exam, and medical decision-making; I reviewed and confirmed the accuracy of the information in the transcribed note. Signed by: Bertram Minor, 06/17/2016, 18:25 copies to: Jf Hernandez MD, Timothy S DO Jun 17, 2016 16:29 JOHNNA QUINONES Jun 17, 2016 17:00
[2016-06-17 16:30] VITALS: BP 138/66; PULSE 68; RESP 22; O2SAT 97
[2016-06-17 16:35] LABS: TROPONIN T < 0.010 ug/L (0.0-0.011)
[2016-06-17] MEDS ORDERED: 0.9% Sodium Chloride 1,000 ML IV ONE (17:00)
--- NOTE | 2016-06-17 17:00 | DRSVH ---
PROCEDURE: X-RAY CHEST, TWO VIEWS ([id number]) INDICATIONS: cough TECHNIQUE: 2 views of the chest were acquired. COMPARISON: [facility], CR, XR CHEST 2VW, 12/01/2015, 8:19. [facility], CR, XR CHEST 1VW (PORTABLE), 03/28/2016, 0:32. FINDINGS: Surgical changes and devices: A coronary artery stent is noted within the left aspect of the heart. Lungs and pleura: Subtle streaky opacities are present within the right midlung which are new when co mpared with the study dated 03/28/16. The lung volumes are large and the diaphragms are flattened sugg esting emphysema. No pleural effusion or pneumothorax. Mediastinum: Mediastinal contours are normal. Heart size is normal. Bones and chest wall: No suspicious bony abnormalities. Soft tissues appear unremarkable. IMPRESSION: Right midlung radiopacities suspicious for aspiration/infection. Short interval followup is recommended with resolution of the patient's symptoms to ensure there is no underlying pulmonary p athology. Dictated by: Bonita Lyons M.D. on 06/17/2016 at 16:57 Approved by: Bonita Lyons M.D. on 06/17/2016 at 16:59
[2016-06-17 17:30] VITALS: BP 150/62; PULSE 76; RESP 22; O2SAT 97
[2016-06-17] MEDS ORDERED: levoFLOXacin Inj 750 MG in IV Premix 1 EACH IV ONE (17:35)
[2016-06-17] MEDS ORDERED: Piperacillin-Tazo 3.375 Gm Inj 3.375 GM in Dextrose 5% Minibag Plus 50 ML IV ONE (17:35)
[2016-06-17] MEDS ORDERED: Vancomycin 1 Gm/200 mL NS Premix IV ONE (17:45)
[2016-06-17] MEDS ORDERED: ACET-171 PO (17:58)
[2016-06-17] MEDS ORDERED: METF750T2 PO (17:58)
[2016-06-17] MEDS ORDERED: T2T PO (17:58)
[2016-06-17] MEDS ORDERED: ALBU8.5H2 INHALATION (17:58)
[2016-06-17] MEDS ORDERED: Ondansetron 2 mg/mL 2 mL Inj IVPUSH PRN ×2 (18:30→18:35)
[2016-06-17] MEDS ORDERED: Alum-Mag Hydrox-Simeth 30 mL Suspension PO PRN ×2 (18:30→18:35)
[2016-06-17] MEDS ORDERED: Polyethylene Glycol (PEG) 17 Gm Powder PO PRN (18:30)
--- NOTE | 2016-06-17 18:43 | PCM.HPMED ---
Subjective Date of Service Jun 17, 2016 Primary Provider: Admitting Physician: Mihir Clarke Primary Care Physician: Jf Hernandez MD Attending Physician: Mihir Clarke Chief Complaint: shortness of breath History of Present Illness: 75 year old female with a history of CAD, DM2, HTN, and HLP presents with complaint of 2 weeks of ongoing and worsening shortness of breath and several days of productive cough and couple of days of chills and generalized malaise, decreased appetite and generalized weakness. She was last hospitalized in March of this year for chest pain at which time her cardiac workup was negative and unremarkable. She denies any sick contacts although apparently went to a [employer] game just 2 days ago. In the ED the she has received a dose of Zosyn, Vanco, and Levo for presumed health care associated pneumonia. In review of systems in addition to the noted above she also reports a mild frontal headache and reports a mild mid-sternal chest pain which she says is ongoing and intermittent since her last hospitalization in March. She otherwise denies any GI symptoms. Allergies Coded Allergies: lactose (Verified Allergy, Mild, Nausea,Vomiting,Diarrhea, 03/28/16) Home Medications Atorvastatin (Lipitor) 40 Mg Tablet 40 MG PO DAILY Clopidogrel Bisulfate (Plavix) 75 Mg Tablet 75 MG PO DAILY Furosemide (Lasix) 20 Mg Tablet 20 MG PO DAILY Lisinopril (Lisinopril) 20 Mg Tablet 20 MG PO DAILY Metformin (Metformin) 500 Mg Tablet 500 MG PO BID Metoprolol Tartrate (Metoprolol Tartrate) 50 Mg Tablet 50 MG PO BID Pantoprazole DR (Pantoprazole DR) 20 Mg Tablet.dr 20 MG PO DAILY Potassium Chloride ER (K-Tab) 10 Meq Tablet 10 MEQ PO DAILY Exam Vital Signs & I/O Vital Sign- Last 8 Hours Date Time Temp Pulse Resp B/P Pulse Ox O2 Delivery O2 Flow Rate FiO2 06/17/16 17:30 76 22 150/62 97 Room Air 06/17/16 16:30 68 22 138/66 97 Room Air 06/17/16 14:47 36.6 73 9 140/65 98 Lab & Micro Results Laboratory Tests Test 06/17/16 15:45 06/17/16 17:16 White Blood Count 9.6th/mm3 (3.8-10.1) Red Blood Count 4.20mil/mm3 (3.90-5.20) Hemoglobin 11.9g/dL (12.0-15.6) Hematocrit 35.7% (35.0-46.0) Mean Corpuscular Volume 85.0fL (81-100) Mean Corpuscular Hemoglobin 28.3pg (27.0-35.0) Mean Corpuscular Hemoglobin Concent 33.3% (32.0-37.0) Red Cell Distribution Width 13.4% (12.3-15.4) Platelet Count 330bil/L (150-400) Neutrophils (%) (Auto) 78.5% (40-74) Lymphocytes (%) (Auto) 14.5% (14-46) Monocytes (%) (Auto) 6.1% (4-12) Eosinophils (%) (Auto) 0.6% (0-5) Basophils (%) (Auto) 0.2% (0-3) Sodium Level 132mEq/L (134-144) Potassium Level 4.3mEq/L (3.5-5.2) Chloride Level 97mEq/L (97-108) Carbon Dioxide Level 20mmol/L (18-29) Blood Urea Nitrogen 9mg/dL (8-27) Creatinine 0.49mg/dL (0.57-1.00) Estimat Glomerular Filtration Rate 176mL/min (>59) Glucose Level 135mg/dL (60-99) Calcium Level 9.3mg/dL (8.5-10.1) Total Bilirubin 0.4mg/dL (0.0-1.2) Aspartate Amino Transf (AST/SGOT) 19U/L (0-50) Alanine Aminotransferase (ALT/SGPT) 11U/L (0-32) Alkaline Phosphatase 102U/L (25-165) Troponin T < 0.010ug/L (0.0-0.011) Pro-B-Type Natriuretic Peptide 1016pg/mL (0-738) Total Protein 7.8g/dL (6.4-8.4) Albumin 3.7g/dL (3.4-5.0) Lactic Acid Level 1.0mmol/L (0.4-2.0) Result Diagram: 06/17/16 1545 06/17/16 154 Review of Systems: Constitutional: Negative, except as otherwise mentioned in the history above. Ophthalmologic: Negative, except as otherwise mentioned in the history above. Cardiovascular: Negative, except as otherwise mentioned in the history above. Respiratory: Negative, except as otherwise mentioned in the history above. Gastrointestinal: Negative, except as otherwise mentioned in the history above. Genitourinary: Negative, except as otherwise mentioned in the history above. Musculoskeletal: Negative, except as otherwise mentioned in the history above. Neurological: Negative, except as otherwise mentioned in the history above. Psychiatric: Negative, except as otherwise mentioned in the history above. Hematologic/Lymphatic: Negative, except as otherwise mentioned in the history above. Allergic/Immunologic: Negative, except as otherwise mentioned in the history above. PMH Coronary artery disease s/p stenting Diabetes mellitus type 2 Hyperlipidemia Hypertension Surgical History Cholecystectomy KRISH-BSO Family History She has one daughter with cancer No known family history of lung disease or heart disease per granddaughter Social History Hx Alcohol Use: No Hx Substance Use: No Hx Tobacco Use: Yes (quit approximately 30 years ago, patient used to smoke 3 packs per day ) Smoking Status: Former Smoker Exam Vital Signs Vital Sign - Last Date Time Temp Pulse Resp B/P Pulse Ox O2 Delivery O2 Flow Rate FiO2 06/17/16 17:30 76 22 150/62 97 Room Air 06/17/16 14:47 36.6 General: Alert, Oriented X3, Cooperative, No Acute Distress Head: Normal Eyes: PERRLA, EOMI, Scleral Anicteric Nose: Mucous Membr Moist/[place] Mouth: Mucous Membr Moist/[place] Neck: Supple Chest & Lungs: Chest Wall Normal, Other (mild ronchi on the left base otherwise clear to asucultation bilaterally) Cardiovascular: Regular Rate/Rhythm Pulses: NL carotid, radial, femoral, DP, PT Abdomen: Non-tender, Non-distended, Normoactive bowel tones, Soft Extremities: No cyanosis/clubbing/edma bilat Neurological: Grossly Neurologically Intact, Normal Speech Lymphatic: Other Lymph Nodes (no signficant lymphadenopathy) Additional Information: Psych: appropriate Lab and Diagnostics Result Diagram: 06/17/16 1545 06/17/16 1540 X-Rays, CTs and MRIs Date of Service: 06/17/16 150 PROCEDURE: X-RAY CHEST, TWO VIEWS ([id number]) IMPRESSION: Right midlung radiopacities suspicious for aspiration/infection. Short interval followup is recommended with resolution of the patient's symptoms to ensure there is no underlying pulmonary pathology. Dictated by: Bonita Lyons M.D. on 06/17/2016 at 16:57 Approved by: Bonita Lyons M.D. on 06/17/2016 at 16:59 12-lead ECG not done Assessment & Plan 75 year old female with a history of CAD, DM2, HTN, and HLP presents with complaint of 2 weeks of ongoing and worsening shortness of breath and several days of productive cough and couple of days of chills and generalized malaise, decreased appetite and generalized weakness. # Possible acute pneumonia. present on admission. - Doubt health care associated pneumonia and more likely community acquired. - Check sputum culture - Check viral respiratory PCR - MRSA screen - Check procalcitonin - Will hold off on further antibiotics at this time and will repeat labs and above tests first before deciding to further antibiotics or not # Acute shortness of breath. Present on admission. - ? if due to possible pneumonia noted above - Given report of chest pain as well will check CTA to rule out PE - Continue with supportive care including supplemental O2 if needed # History of Coronary artery disease s/p stenting. Presumed stable - Had recent cardiac workup including negative stress test - Continue with home cardiac meds including Plavix - Followup on Tele # Diabetes mellitus type 2. - Hold home Metformin - Cover with ISS while inpatient # Hyperlipidemia - Continue with home Statin # Hypertension, chronic. stable - Continue with home dose Lisinopril and metoprolol Expected length of hospital stay is greater than 2 midnights and likely 2-3 days GI Prophylaxis: Proton Pump Inhibitor VTE Prophylaxis: Sub-Q Heparin (Unfractionated) Resuscitation Status: CPR: Attempt Resuscitation (discussed and verified with the patient) Time spent 65 min Mihir Clarke Jun 17, 2016 18:43
[2016-06-17] MEDS ORDERED: Codeine-APAP 30-300 mg Tablet PO PRN (18:55)
[2016-06-17 18:56] VITALS: BP 148/64; PULSE 89; RESP 18; O2SAT 99
[2016-06-17] MEDS ORDERED: Albuterol 2.5 mg/3 mL Inhalation Solution NEB PRN (20:00)
--- NOTE | 2016-06-17 20:56 | DRSVH ---
PROCEDURE: CT ANGIO CHEST PULMONARY EMBOLISM ([id number]) INDICATIONS: chest pain, shortness of breath TECHNIQUE: After the administration of intravenous contrast, 2 mm thick sections acquired from the pulmonary api florinda to the posterior costophrenic angles. 3-dimensional maximum intensity projection (MIP) coronal a nd sagittal reformats were then acquired through the thorax. For radiation dose reduction, the follo wing was used: automated exposure control, adjustment of mA and/or kV according to patient size. COMPARISON: [facility], CT, CHEST WITH CONTRAST, 09/02/2013, 22:49. FINDINGS: Image quality: There is motion artifact limiting evaluation. Pulmonary arteries: Pulmonary arteries demonstrate no intraluminal filling defects to suggest centra l pulmonary embolism. Evaluation of subsegmental branches distally limited due to motion artifact. There is enlargement of the pulmonary arteries suggesting pulmonary arterial hypertension. Lungs and pleura: There are bilateral patchy areas of ground glass opacities with areas of confluenc e associated with small regions of consolidation primarily within the right lung. These areas of con solidation appears slightly increased compared to the prior study. Bilateral bronchiectasis is also redemonstrated in the lung bases primarily within the right lobe inferiorly associated mild scarring and peribronchial consolidation. Medially within the right lower lobe, there are multiple lucent are as consistent with pneumatoceles. No pleural effusions or pneumothorax. There are small nodular taye ling defects along the lopez of the trachea and mainstem bronchi. Mediastinum: Heart size is normal, without pericardial effusion. There are enlarged mediastinal and hilar lymph nodes which appear increased in size compared to the prior study. These include a repre sentative aortopulmonary window node measuring up to 1.1 cm in short axis. There are also confluent subcarinal and azygoesophageal lymph nodes. Thoracic aorta is normal in caliber and enhancement. Es ophagus is normal in caliber, without hiatal hernia. Bones and chest wall: No suspicious bony lesions. Ribs and thoracic spine appear intact throughout. Thyroid gland is heterogeneous with suggestion of a small left thyroid nodule. No axillary or supr aclavicular adenopathy. Abdomen: Visualized upper abdominal solid organs appear normal in the early arterial phase of enhanc ement. IMPRESSION: 1. No evidence of central pulmonary embolism with evaluation of subsegmental branches limited due to motion artifact. Enlargement of the pulmonary arteries is suggestive of pulmonary arterial hyperten allison. 2. Bilateral patchy groundglass opacity with areas of confluence and mild consolidation appear mildl y increased over time compared to the prior study. There is also basilar bronchiectasis and scarring and scattered pneumatoceles. The constellation of findings most likely represent sequelae of a nurse discharge planner meir atypical infection such as LEOBARDO with progressive increase over time. 3. Small nodular filling defects demonstrated in the trachea and mainstem bronchi may represent adhe rent mucous versus small polyps. Dictated by: Johan Harris M.D. on 06/17/2016 at 20:47 Approved by: Johan Harris M.D. on 06/17/2016 at 20:55
[2016-06-17 21:12] VITALS: PULSE 114
[2016-06-17 21:17] VITALS: BP 113/57; PULSE 120; RESP 18; O2SAT 94
[2016-06-17] MEDS: Insulin Human REGular 300 Unit/3 mL Inj SUBQ SCH (22:00)
[2016-06-17] MEDS: 0.9% Sodium Chloride 1,000 ML IV SCH (22:41)
[2016-06-17] MEDS: Pantoprazole 20 mg ER24 Tablet PO SCH (22:49)
[2016-06-18] VITALS (8 sets, daily range): BP systolic 118–170; BP diastolic 55–86; PULSE 65–85; RESP 14–20; O2SAT 96–100
[2016-06-18] MEDS: Heparin 5,000 Unit/mL Inj SUBQ SCH ×3 (00:22→16:01)
--- NOTE | 2016-06-18 04:30 | NUR ---
Admit Pt arrived on unit at 1850 from ED. She is here with dx of PNA. Pt has IV in left FA and is patent, ABO running. A/O x3, oriented to room, call light and bed/TV controls. Pt is FULL CODE. MRSA and PCR swabs done, sputum sample sent and Pt had a CT/Angio done. Family at bedside. Pt states her pain at 4/10 and it is a headache, no other pain noted. Care continues
[2016-06-18] MEDS: 0.9% Sodium Chloride 1,000 ML IV SCH ×2 (04:33→11:00)
[2016-06-18 05:43] LABS: BASOPHILS % (AUTO) 0.1 % (0-3); EOSINOPHILS % (AUTO) 0.2 % (0-5); MONOCYTES % (AUTO) 3.2 % (4-12); Mean Corpuscular Hemoglobin 28.8 pg (27.0-35.0); NEUTROPHILS % (AUTO) 88.3 % (40-74); Platelet Count 281 bil/L (150-400)
[2016-06-18 05:58] LABS: INR 1.04 ratio
[2016-06-18 06:14] LABS: Magnesium 1.8 mg/dL (1.6-2.6)
[2016-06-18] MEDS: Insulin Human REGular 300 Unit/3 mL Inj SUBQ SCH ×4 (07:30→22:00)
[2016-06-18] MEDS ORDERED: Vancomycin Dose per Pharmacist XX SCH (08:30)
--- NOTE | 2016-06-18 10:15 | NUR ---
Evaluation completed. Please go to "Notes" then click on "Assessments and Notes" (bottom left corner of screen). Then select appropriate discipline tab on top of screen.
[2016-06-18 12:37] LABS: APPEARANCE,URINE CLEAR (CLEAR,HAZY); COLOR,URINE YELLOW (YELLOW); OCCULT BLOOD,URINE NEGATIVE (NEGATIVE); UROBILINOGEN,URINE NORMAL (NORMAL)
--- NOTE | 2016-06-18 14:01 | NUR ---
Case Management- IMM explained/ signed by patient. Copy given to patient and orginal placed in chart. Mae HAIDER/RN
--- NOTE | 2016-06-18 14:03 | PCM.PNMED ---
Subjective Date of Service Jun 18, 2016 Subjective says breathing already feels a lot better than yesterday. Denies any new issues/ complaints Exam Vital Signs Vital Sign - Last Date Time Temp Pulse Resp B/P Pulse Ox O2 Delivery O2 Flow Rate FiO2 06/18/16 12:14 36.8 65 18 134/55 100 Room Air Intake and Output 06/17/16 06/17/16 06/18/16 Cumulative From/Thru 15:00 23:00 07:00 06/17/16 14:47 - 06/18/16 06:45 Intake Total 400 ml 2563 ml 2963 ml Output Total 1800 ml 1800 ml Balance 400 ml 763 ml 1163 ml Intake Oral 636 ml 636 ml IV Total 400 ml 1927 ml 2327 ml Output Urine Total 1800 ml 1800 ml Exam General: Alert, Cooperative, No Acute Distress Head: Normal Eyes: Scleral Anicteric Nose: Mucous Membr Moist/[place] Mouth: Mucous Membr Moist/[place] Neck: Supple Chest & Lungs: Chest Wall Normal, Other (mild rhonchi on the left base otherwise clear to auscultation bilaterally) Cardiovascular: Regular Rate/Rhythm Pulses: NL carotid, radial, femoral, DP, PT Abdomen: Non-tender, Non-distended, Normoactive bowel tones, Soft Extremities: No cyanosis/clubbing/edema bilat Neurological: Grossly Neurologically Intact, Normal Speech Psych: appropriate IVs and Medications Medications Reviewed: Medications were reviewed in detail Lab and Diagnostics Result Diagram: 06/18/16 0510 06/18/16 0510 X-Rays, CTs and MRIs Date of Service: 06/17/16 1506 PROCEDURE: X-RAY CHEST, TWO VIEWS ([id number]) IMPRESSION: Right midlung radiopacities suspicious for aspiration/infection. Short interval followup is recommended with resolution of the patient's symptoms to ensure there is no underlying pulmonary pathology. Dictated by: Bonita Lyons M.D. on 06/17/2016 at 16:57 Approved by: Bonita Lyons M.D. on 06/17/2016 at 16:59 Date of Service: 06/17/16 1829 PROCEDURE: CT ANGIO CHEST PULMONARY EMBOLISM ([id number]) IMPRESSION: 1. No evidence of central pulmonary embolism with evaluation of subsegmental branches limited due to motion artifact. Enlargement of the pulmonary arteries is suggestive of pulmonary arterial hypertension. 2. Bilateral patchy groundglass opacity with areas of confluence and mild consolidation appear mildly increased over time compared to the prior study. There is also basilar bronchiectasis and scarring and scattered pneumatoceles. The constellation of findings most likely represent sequelae of a chronic atypical infection such as LEOBARDO with progressive increase over time. 3. Small nodular filling defects demonstrated in the trachea and mainstem bronchi may represent adherent mucous versus small polyps. Dictated by: Johan Harris M.D. on 06/17/2016 at 20:47 Approved by: Johan Harris M.D. on 06/17/2016 at 20:55 12-lead ECG not done Assessment & Plan 75 year old female with a history of CAD, DM2, HTN, and HLP presents with complaint of 2 weeks of ongoing and worsening shortness of breath and several days of productive cough and couple of days of chills and generalized malaise, decreased appetite and generalized weakness. # Possible acute pneumonia. present on admission. - Doubt health care associated pneumonia - Infection markers so far fairly unremarkable and negative - CTA chest notable for: "Bilateral patchy groundglass opacity with areas of confluence and mild consolidation appear mildly increased over time compared to the prior study. There is also basilar bronchiectasis and scarring and scattered pneumatoceles. The constellation of findings most likely represent sequelae of a chronic atypical infection such as LEOBARDO with progressive increase over time." - Continue to hold further antibiotics at this time and instead consulted ID for further input. Will followup with recommendations. # Acute shortness of breath. Present on admission. Improving - ? if due to possible pneumonia noted above - PE ruled out with CTA - Continue with supportive care including supplemental O2 if needed # History of Coronary artery disease s/p stenting. Presumed stable - Had recent cardiac workup including negative stress test - Continue with home cardiac meds including Plavix - Followup on Tele # Diabetes mellitus type 2. - Hold home Metformin - Cover with ISS while inpatient # Hyperlipidemia - Continue with home Statin # Hypertension, chronic. stable - Continue with home dose Lisinopril and metoprolol Dispo: 1-2 days GI Prophylaxis: Proton Pump Inhibitor VTE Prophylaxis: Sub-Q Heparin (Unfractionated) VTE Mechanical Devices: Intermittant Pneumatic CD Resuscitation Status: CPR: Attempt Resuscitation (discussed and verified with the patient) Mihir Clarke Jun 18, 2016 14:03
--- NOTE | 2016-06-18 14:29 | NUR ---
Social Work-initial assessment/readiness for discharge: Data:See initial assessment. Pt is a 76 y/o female who was admitted on 06/17/16 for pneumonia per H&P. Pt's insurance is [employer] and [employer] and PCP is Jf Hernandez MD. EMR Reviewed. SW met with pt and granddaughter at bedside to discuss discharge planning, SW role explained. Pt is alert and oriented x3. Pt resides at home with her where he remains independent with ADLs. Pt drives and does use a cane at baseline. Pt has no HH or SNF history. Pt has no assisted care or VA benefits. SW discussed DPOA/ advanced directive, pt confirms she has completed this, encouraged a copy. Pt states she has caregivers, but cannot remember the name of CM. SW called [facility] and left message for JASON Calle H&P, pt has 37 hours. PT has seen pt and recommended home no needs. Pt's family to provide transport home at discharge. SW provided phone number and plan on white board in room. No anticipated discharge needs. SW will continue to follow if needs arise. Assessment:Pt who is independent at baseline. Plan:Pt to discharge home when medically stable via POV. Pt to continue with [facility] at home. PT has seen pt and recommended home no needs. No anticipated discharge needs. SW will continue to follow if needs arise. EDI Cameron Addendum: 06/18/16 at 1436 by QING THOMAS SS Amended: Links added.
[2016-06-18] MEDS: levoFLOXacin 750 mg Tablet PO SCH (16:01)
--- NOTE | 2016-06-18 16:34 | NUR ---
ACTIVITY Patient was seen by PT and is steady ambulating around room. Patient denies any SOB at rest or with exertion. No cough noted throughout today. Ambulating around hallway with granddaughter. Denies any pain. Care continues. Continue to monitor.
--- NOTE | 2016-06-18 16:38 | CONS ---
[address] [address] CONSULTATION REPORT PATIENT: CARO UPTON : 1940 MR#: [id number] ADMIT: 06/17/2016 JOB ID: [id number] DATE OF SERVICE: 06/18/2016 INFECTIOUS DISEASE CONSULTATION: I thank Dr. Clarke for this timely consult. REASON FOR CONSULTATION: Bilateral subtle pulmonary infiltrates in a patient admitted with cough and shortness of breath. Rule out consideration for mycobacterial infection. HISTORY OF PRESENT ILLNESS: The patient is a 76-year-old woman who was in her usual state of reasonable health until two weeks ago when she developed the insidious onset of a cough intermittently productive of greenish sputum associated with increasing shortness of breath, especially with exertion. These symptoms were also accompanied by some chills but not fever and generalized malaise, weakness and fatigue. She did not have any significant sore throat with these complaints nor did she have any pleuritic chest pain. There was no associated nausea, vomiting, diarrhea or dysuria. She was admitted to this facility yesterday because of these complaints. Though the patient has no report of chest pain today, there is report that yesterday she told the ED doctors about a left-sided pleuritic chest pain which may have been part of the reason she was admitted with this symptomatology. Following her admission yesterday, the patient had a CT scan of the chest, which showed some abnormalities which have been progressive over the last three years or so with some scattered ground-glass pulmonary infiltrates and apparent bronchiectasis at the bases which caused the radiologist to opine that she might have some degree of mycobacterial infection which has led to this ID consult. When we find the patient this afternoon, she says she is already feeling much better than on admission yesterday. She received loading doses basically of vanc, Zosyn and levo because she had been at this facility in March for an unrelated problem which was thought possibly to have so-called healthcare associated pneumonia. Those antibiotics were subsequently discontinued and she is not currently on any antibiotics but she notes she is nonetheless way better today. She no longer has chills. She notes her cough has turned from green to clear and shortness of breath has basically resolved as have her chills. PAST MEDICAL HISTORY: 1. Diabetes mellitus. 2. 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 3. Hypertension. 4. Hyperlipidemia 5. Status post cholecystectomy. 6. Total abdominal hysterectomy and bilateral salpingo-oophorectomy. SOCIAL HISTORY: The patient was a heavy smoker and drinker until roughly 20 years ago when her children asked her to stop and she quit. It is a little unclear exactly when this sobriety started but perhaps 20 or 30 years ago even. She reports neither of these substances since that time. FAMILY HISTORY: Negative for tuberculosis in first or second-degree relatives. REVIEW OF SYSTEMS: Was done. At this point she has no significant headache. No significant visual complaints. No sore throat. Her cough is improved though still productive of some clear sputum. She no longer has pleuritic chest pain. She no longer has chills and she denies fever. She is having no abdominal pain, nausea, vomiting, diarrhea. No dysuria, urgency or frequency. No swelling of the joints. She has been really weak the last few days and, therefore, unable to walk but ordinarily she ambulates without difficulty. The remainder of the review of systems is negative. PHYSICAL EXAMINATION: Reveals an afebrile woman, 36.8 temperature, pulse 65, respiratory rate 18, blood pressure 135/58. She is saturating very well on room air 100% at on room air and her breathing is completely unlabored this afternoon. Examination of the mental status reveals to be reasonably clear. Head without trauma. Eyes without conjunctivitis. Oral cavity without thrush or hairy leukoplakia. Neck reasonably supple. Lungs: Posterior examination of the lungs with deep breathing reveals them to be quite clear, just a few scattered crackles near the bases but otherwise pretty healthy sounding lungs. Cardiac tones: Regular rate and rhythm. No murmur appreciated. Abdomen: Soft and nontender without organomegaly. No palpable suprapubic bladder or other abnormalities. She does not have a John catheter. There is no evidence of synovitis. No evidence of cellulitis. No peripheral edema. The patient is neurologically intact throughout. LABORATORIES: Include white count 10,000 yesterday, now 9000. Differential shows a slight poly predominance and she is not currently receiving corticosteroids. Creatinine 0.44. LFTs normal. Procalcitonin 0.55. Urinalysis without white cells. Urine Legionella and pneumococcal antigens are negative. Sputum culture with moderate polys and culture is cooking. Respiratory viral and bacterial multiplex PCR assays negative. Blood cultures negative. MRSA screen negative. It is worth noting that on prior admissions she had a positive sputum for strep pneumo and that was last November. That was a sputum culture only. Blood was negative at that time and the urine antigen during that admission was negative. IMAGING: CT scan done during this admission shows no evidence of pulmonary embolism basically. There is bilateral very patchy ground glass opacities with some mild consolidation which have worsened slightly over a CT done three years ago. There is also some bibasilar bronchiectasis and some pneumoceles. The radiologist said these could be sequelae of a chronic atypical infection. IMPRESSION: This patient appears to be in no respiratory difficulty whatsoever at this time. She is afebrile with normal respiratory rate, unlabored breathing and saturating 100% on room air. She reports, and her family verifies, that at baseline she gets around without much in the way of any shortness of breath at all and has a fairly minimal and very intermittent cough at most. I doubt that this patient has ongoing significant MAC disease or any chronic pneumonia as it sounds as if her baseline state of health is quite good. The fact that her respiratory status cough, chills and malaise are already resolving after just 24 hours in the hospital also argues strongly against MAC which often takes 2-4 months to even start to improve with triple drug therapy. I think most likely, at this point, the patient has some degree of bronchiectasis, which looks fairly mild on the CT, and may have suffered an exacerbation of this. RECOMMENDATIONS: 1. I would proceed to treat the patient for a very short course with levofloxacin such as 750 mg once a day for five days assuming that there is no contraindication. This would be a reasonable treatment for a bronchiectasis flare. Her significant improvement overnight is hard to explain unless one thinks that the antibiotics had some salutary effect. The other possibility is that she is in a home environment which is not conducive to good respiratory function but she tells us nobody there is smoking so I think that it is more likely that her improvement is due to antibiotics and probably hydration than anything else. 2. I would give levo 750 a day for four more days through June 21 and then discontinue. 3. Infectious Disease thanks you for this consult. I will be signing off today.
[2016-06-18] MEDS: Pantoprazole 20 mg ER24 Tablet PO SCH (20:35)
[2016-06-19 00:01] VITALS: BP 160/69; PULSE 66; RESP 18; O2SAT 95
[2016-06-19] MEDS: Heparin 5,000 Unit/mL Inj SUBQ SCH ×2 (00:33→08:02)
[2016-06-19] MEDS: 0.9% Sodium Chloride 1,000 ML IV SCH ×2 (00:35→08:02)
--- NOTE | 2016-06-19 01:20 | NUR ---
Activity Pt in room with family at bedside all shift. Pt reports no coughing and breathing better. Independent to BR and tolerating well. Pt eating/drinking well. No reports of NV. Pt reported headache pain at 10, tylenol given with + effects
[2016-06-19 05:10] VITALS: BP 157/54; PULSE 72; RESP 18; O2SAT 97
[2016-06-19 06:48] LABS: Mean Corpuscular Hemoglobin 27.5 pg (27.0-35.0); Mean Corpuscular Volume 84.7 fL (81-100)
[2016-06-19 07:17] VITALS: BP 167/70; PULSE 74; RESP 16; O2SAT 96
[2016-06-19] MEDS: Insulin Human REGular 300 Unit/3 mL Inj SUBQ SCH (07:30)
[2016-06-19] MEDS: levoFLOXacin 750 mg Tablet PO SCH (08:01)
--- NOTE | 2016-06-19 10:50 | NUR ---
Social Work-discharge: Data:EMR Reviewed. Pt is on day 2 of hospitalization for pneumonia per H&P. Pt is medically stable for discharge today. Pt resides at home with family. Pt has [facility] caregivers and her CM Theresa Calle. PT has cleared pt for home with no needs. SW confirmed plan of discharge home today. Pt's family to provide transport home today. No discharge needs identified. All updated and agreeable to plan. Assessment:Pt who is independent at baseline. Plan:Pt to discharge home today via POV. No discharge needs identified. All updated and agreeable to plan. EDI Cameron
[2016-06-19 10:51] VITALS: PULSE 74
[2016-06-19] MEDS ORDERED: LEVO750T9 PO (10:51)
--- NOTE | 2016-06-19 10:54 | PCM.DIMED ---
Discharge Instructions Date of Service Jun 19, 2016 Dates of Hospitalization Jun 17, 2016 at 18:15 Discharge Diagnosis Discharge Diagnosis # Acute shortness of breath likely due to acute bronchiectasis, present on admission. Improved # History of Coronary artery disease post stenting. Presumed stable # Diabetes mellitus type 2. Stable # Hyperlipidemia # Hypertension, chronic. stable Diet Low fat, Low Sodium, Heart Healthy, Diabetic Activity No restrictions Call your provider Fever or Chills, Shortness of breath, Chest pain, Excessive diarrhea Patient Instructions Seek immediate medical attention if any new or worsening signs or symptoms occur. Follow-up plan 1. Followup with primary care provider within 1-2 weeks. Follow-up Provider: Jf Hernandez MD, Masoud Jun 19, 2016 10:54
--- NOTE | 2016-06-19 12:15 | NUR ---
Discharge Pt was discharged from room 1001 at 1215 via private vehicle home with family. IV d/c'd intact. No items in the safe or the pharmacy. All questions and concerns addressed. Hard copy of RX in the discharge folder with the pt.
--- NOTE | 2016-06-19 16:11 | PCM.DC.MED ---
Discharge Summary Date of Service Jun 19, 2016 Dates of Hospitalization Date of Hospital Admission Jun 17, 2016 at 18:15 Date of Discharge: Jun 19, 2016 Providers: Admitting Physician: Mihir De La Rosa Primary Care Physician: Jf Hernandez MD Attending Physician: Mihir De La Rosa Diagnosis at Time of Discharge Diagnosis at Time of Discharge # Acute shortness of breath likely due to acute bronchiectasis, present on admission. Improved # History of Coronary artery disease post stenting. Presumed stable # Diabetes mellitus type 2. Stable # Hyperlipidemia # Hypertension, chronic. stable Consultations 1. ID Procedures XRay, CTs & MRIs Date of Service: 06/17/16 1506 PROCEDURE: X-RAY CHEST, TWO VIEWS ([id number]) IMPRESSION: Right midlung radiopacities suspicious for aspiration/infection. Short interval followup is recommended with resolution of the patient's symptoms to ensure there is no underlying pulmonary pathology. Dictated by: Bonita Lyons M.D. on 06/17/2016 at 16:57 Approved by: Bonita Lyons M.D. on 06/17/2016 at 16:59 Date of Service: 06/17/16 1829 PROCEDURE: CT ANGIO CHEST PULMONARY EMBOLISM ([id number]) IMPRESSION: 1. No evidence of central pulmonary embolism with evaluation of subsegmental branches limited due to motion artifact. Enlargement of the pulmonary arteries is suggestive of pulmonary arterial hypertension. 2. Bilateral patchy groundglass opacity with areas of confluence and mild consolidation appear mildly increased over time compared to the prior study. There is also basilar bronchiectasis and scarring and scattered pneumatoceles. The constellation of findings most likely represent sequelae of a chronic atypical infection such as LEOBARDO with progressive increase over time. 3. Small nodular filling defects demonstrated in the trachea and mainstem bronchi may represent adherent mucous versus small polyps. Dictated by: Johan Harris M.D. on 06/17/2016 at 20:47 Approved by: Johan Harris M.D. on 06/17/2016 at 20:55 Brief History 75 year old female with a history of CAD, DM2, HTN, and HLP presents with complaint of 2 weeks of ongoing and worsening shortness of breath and several days of productive cough and couple of days of chills and generalized malaise, decreased appetite and generalized weakness. She was last hospitalized in March of this year for chest pain at which time her cardiac workup was negative and unremarkable. She denies any sick contacts although apparently went to a [employer] [place] just 2 days ago. In the ED the she has received a dose of Zosyn, Vanco, and Levo for presumed health care associated pneumonia. In review of systems in addition to the noted above she also reports a mild frontal headache and reports a mild mid-sternal chest pain which she says is ongoing and intermittent since her last hospitalization in March. She otherwise denies any GI symptoms. Hospital Course # Acute shortness of breath likely due to acute bronchiectasis, present on admission. Resolved. - ID consulted. Doubt pneumonia. - Per recommendation will d/c home with 2 more days of PO Levofloxacin for suspected acute bronchiectasis - PE ruled out with CTA # History of Coronary artery disease s/p stenting. Presumed stable - Had recent cardiac workup including negative stress test - Continue with home cardiac meds including Plavix # Diabetes mellitus type 2. Stable # Hyperlipidemia - Continue with home Statin # Hypertension, chronic. stable - Continue with home dose Lisinopril and metoprolol Exam Vital Signs (Last) Date Time Temp Pulse Resp B/P Pulse Ox O2 Delivery O2 Flow Rate FiO2 06/19/16 10:51 74 06/19/16 07:17 36.8 16 167/70 96 Room Air Exam General: Alert, Cooperative, No Acute Distress Head: Normal Eyes: Scleral Anicteric Nose: Mucous Membr Moist/[place] Mouth: Mucous Membr Moist/[place] Neck: Supple Chest & Lungs: Chest Wall Normal, clear to auscultation bilaterally Cardiovascular: Regular Rate/Rhythm Pulses: NL carotid, radial, femoral, DP, PT Abdomen: Non-tender, Non-distended, Normoactive bowel tones, Soft Extremities: No cyanosis/clubbing/edema bilat Neurological: Grossly Neurologically Intact, Normal Speech Test 06/17/16 15:45 06/17/16 17:16 06/18/16 05:10 06/18/16 11:55 Hemoglobin A1c 6.7% (4.8-5.6) Total Bilirubin 0.4mg/dL (0.0-1.2) Aspartate Amino Transf (AST/SGOT) 19U/L (0-50) Alanine Aminotransferase (ALT/SGPT) 11U/L (0-32) Alkaline Phosphatase 102U/L (25-165) Troponin T < 0.010ug/L (0.0-0.011) Pro-B-Type Natriuretic Peptide 1016pg/mL (0-738) Total Protein 7.8g/dL (6.4-8.4) Albumin 3.7g/dL (3.4-5.0) Lactic Acid Level 1.0mmol/L (0.4-2.0) Neutrophils (%) (Auto) 88.3% (40-74) Lymphocytes (%) (Auto) 7.9% (14-46) Monocytes (%) (Auto) 3.2% (4-12) Eosinophils (%) (Auto) 0.2% (0-5) Basophils (%) (Auto) 0.1% (0-3) Prothrombin Time 11.1sec (8.1-12.5) Prothromb Time International Ratio 1.04ratio Activated Partial Thromboplast Time 26.1sec (22.8-33.0) Sodium Level 139mEq/L (134-144) Potassium Level 4.5mEq/L (3.5-5.2) Chloride Level 105mEq/L (97-108) Carbon Dioxide Level 21mmol/L (18-29) Blood Urea Nitrogen 6mg/dL (8-27) Creatinine 0.44mg/dL (0.57-1.00) Estimat Glomerular Filtration Rate 200mL/min (>59) Glucose Level 110mg/dL (60-99) Calcium Level 8.8mg/dL (8.5-10.1) Magnesium Level 1.8mg/dL (1.6-2.6) Procalcitonin 0.55ng/mL (0.00-0.08) Urine Legionella pneumophilia Ag Negative (Negative) Test 06/18/16 12:19 06/19/16 05:40 Urine Color Yellow (YELLOW) Urine Appearance Clear (CLEAR,HAZY) Urine pH 7.0 (5.0-8.0) Urine Specific Stevenson 1.005 (1.003-1.035) Urine Protein Negativemg/dL (NEG,TRACE) Urine Glucose (UA) Negativemg/dL (NEGATIVE) Urine Ketones Negativemg/dL (NEGATIVE) Urine Occult Blood Negative (NEGATIVE) Urine Nitrite Negative (NEGATIVE) Urine Bilirubin Negative (NEGATIVE) Urine Urobilinogen Normalmg/dL (NORMAL) Urine Leukocyte Esterase Negative (NEGATIVE) Urine RBC 0-2/hpf (0-2) Urine WBC 0-5/hpf (0-5) Urine Epithelial Cells Occasional/hpf (NONE-MOD) Urine Crystals None seen (NONE SEEN) Urine Bacteria Few/hpf (NONE-FEW) Urine Hyaline Casts None/lpf (NONE) Urine Granular Casts None seen (NONE SEEN) Urine Waxy Casts None seen (NONE SEEN) Urine Red Blood Cell Casts None seen (NONE SEEN) Urine White Blood Cell Casts None seen (NONE SEEN) Urine Mucus None seen (None Seen) Urine Trichomonas None seen (NONE SEEN) Urine Yeast None (NONE SEEN) Urinalysis Comment None Urine Culture Reflexed Not indicated White Blood Count 4.6th/mm3 (3.8-10.1) Red Blood Count 3.93mil/mm3 (3.90-5.20) Hemoglobin 10.8g/dL (12.0-15.6) Hematocrit 33.3% (35.0-46.0) Mean Corpuscular Volume 84.7fL (81-100) Mean Corpuscular Hemoglobin 27.5pg (27.0-35.0) Mean Corpuscular Hemoglobin Concent 32.4% (32.0-37.0) Red Cell Distribution Width 13.4% (12.3-15.4) Platelet Count 259bil/L (150-400) Discharge Medications Discharge Medications Atorvastatin (Lipitor) 40 Mg Tablet 40 MG PO QPM (Reported) Clopidogrel Bisulfate (Plavix) 75 Mg Tablet 75 MG PO QAM (Reported) Levofloxacin (Levaquin) 750 Mg Tablet 750 MG PO DAILYAC Prescribed by: MIHIR DE LA ROSA MD Lisinopril (Lisinopril) 20 Mg Tablet 20 MG PO QPM (Reported) Metformin ER (Metformin ER) 750 Mg Tablet 750 MG PO QPM (Reported) Metoprolol Tartrate (Metoprolol Tartrate) 50 Mg Tablet 50 MG PO BID (Reported) Pantoprazole DR (Pantoprazole DR) 20 Mg Tablet.dr 20 MG PO QPM (Reported) As needed Acetaminophen (Acetaminophen) 500 Mg Tablet 500 MG PO Q6H PRN PRN For Headache ( Reported) Acetaminophen/Codeine 300-15mg (Acetaminophen/Codeine 300-15mg) 1 Each Tablet 1- 2 TABLET PO Q4H PRN PRN Pain (Reported) Albuterol HFA (Proair HFA) 8.5 Gm Hfa.aer.ad 2 PUFFS INHALATION Q4H PRN PRN For Shortness of Breath (Reported) Followup Plan Disposition: Home Follow-up plan 1. Followup with primary care provider within 1-2 weeks. Discharge Diet: Low fat, Low Sodium, Heart Healthy, Diabetic Discharge Activity: No restrictions Patient Instructions Seek immediate medical attention if any new or worsening signs or symptoms occur. Follow-up Provider: Jf Hernandez MD Time spent 35 min copies to: Jf Hernandez MD, Masoud Jun 19, 2016 16:11
== END 2016-06-19 12:15 | disposition home or self-care (01) | DRG 192 ==
LOC: SED 14:40 → OBSVTOIN 18:15 → OSC 18:15
PROVIDERS: ADMIT Internal Medicine; ATTEND Internal Medicine
DX: J47.9 Bronchiectasis, uncomplicated (principal); Z86.73 Personal history of transient ischemic attack (TIA), and cerebral infarction without residual deficits; Z95.5 Presence of coronary angioplasty implant and graft; Z79.84 Long term (current) use of oral hypoglycemic drugs; Z87.891 Personal history of nicotine dependence; E11.9 Type 2 diabetes mellitus without complications; E78.5 Hyperlipidemia, unspecified; I10 Essential (primary) hypertension; I25.10 Atherosclerotic heart disease of native coronary artery without angina pectoris